=== PATIENT | male | born 1945 | race Caucasian/White ===

== ENCOUNTER 2024-04-30 11:21 | Inpatient (IN) | payer MEDICARE, OTHER ==
[~2024-04-30] VITALS: Ht 165.1 cm; Wt 78.9 kg
[2024-04-30] MEDS: IV NS 0.9% 1,000 ML BAG IV ONE ×2 (11:58→13:30)
[2024-04-30 12:03] LABS: HEMATOCRIT 41 % (39-51); RED BLOOD CELL COUNT(AUTO) 4.07 MIL/uL (4.5-6.0)
[2024-04-30 12:24] LABS: CALCIUM, SERUM 10.6 mg/dL (8.5-10.1); CARBON DIOXIDE 22 mmol/L (21-32); CHLORIDE 112 mmol/L (98-107); CREATININE 2.1 mg/dL (0.6-1.3); GLUCOSE 170 mg/dL (74-106); SODIUM SERUM 148 mmol/L (136-145); UREA NITROGEN, BLOOD 60 mg/dL (7-18)
[2024-04-30 12:28] LABS: BASOPHILS # (AUTO) 0.1 K/uL (0.0-0.2); BASOPHILS % (AUTO) 0.4 % (0.0-2.0); EOSINOPHILS % (AUTO) 0.1 % (0.0-6.0); HEMOGLOBIN 13.3 g/dL (13.5-17.5); LYMPHOCYTES # (AUTO) 2.9 K/uL (0.8-4.8); LYMPHOCYTES % (AUTO) 20.8 % (20.0-44.0); MEAN CORPUSCULAR HEMOGLOBIN 33 PG (26.0-33.0); MEAN CORPUSCULAR HGB CONC 32 g/dl (31.0-36.0); MEAN CORPUSCULAR VOLUME 101 fL (80-96); NEUTROPHILS % (AUTO) 71.7 % (43.0-81.0); PLATELET COUNT (AUTO) 57 K/uL (150-450); RED CELL DISTRIBUTION WIDTH 22.4 % (11.5-15.0); WHITE BLOOD COUNT (AUTO) 13.9 K/uL (4.3-11.0)
[2024-04-30 12:30] LABS: ALANINE AMINOTRANSFERASE 68 U/L (12-78); ALBUMIN 2.9 g/dL (3.4-5.0); ALKALINE PHOSPHATASE 381 U/L (46-116); ASPARTATE AMINOTRANSFERASE 175 U/L (15-37); BILIRUBIN,DIRECT 2.3 mg/dL (0.0-0.2); BILIRUBIN,TOTAL 3.7 mg/dL (0.2-1.0); TOTAL PROTEIN, SERUM 6.6 g/dL (6.4-8.2)
[2024-04-30 12:34] LABS: LACTIC ACID 3.9 mmol/L (0.4-2.0)
[2024-04-30 13:14] LABS: PHOSPHORUS 4.1 mg/dL (2.5-4.9)
[2024-04-30 13:21] LABS: LYMPHOCYTES % (MANUAL) 13 % (16-48); MONOCYTES % (MANUAL) 4 % (0-11.0); NEUTROPHILS % (MANUAL) 83 (42-76); PLATELET ESTIMATE DECREASED
[2024-04-30 13:22] LABS: ANISOCYTOSIS 1+
[2024-04-30 13:25] LABS: MAGNESIUM 2.8 mg/dL (1.8-2.4); THYROID STIMULATING HORMONE 5.93 uIU/mL (0.358-3.74)
[2024-04-30] MEDS ORDERED: hydrALAZINE HCL IV 20 MG VIAL IV PRN (13:30)
[2024-04-30] MEDS ORDERED: ONDANSETRON HCL/PF 4 MG/2 ML VIAL IVP PRN (13:30)
[2024-04-30] MEDS: VANCOMYCIN 1 GM in IV D5W 250 ML IV ONE (13:30)
[2024-04-30] MEDS ORDERED: DEXTROSE 50%-WATER 50 ML DISP.SYRIN IV PRN (13:30)
[2024-04-30] MEDS: BLOOD SUGAR DIAGNOSTIC 1 EACH STRIP IN SCH (13:30)
[2024-04-30] MEDS: CEFEPIME 1 GM in IV D5W 50 ML IV ONE (13:45)
[2024-04-30] MEDS: IV D5/0.45 NACL 1,000 ML IV SCH (17:47)
[2024-04-30] MEDS: DOCUSATE SODIUM LIQ 100 MG/10 ML UDC PO SCH (17:53)
[2024-04-30 18:00] VITALS: BP 154/78; TEMP 98.1; O2SAT 99
[2024-04-30 20:00] VITALS: BP 141/64; TEMP 98.1; O2SAT 98
[2024-04-30] MEDS ORDERED: ALBU18HF2 IH (20:09)
[2024-04-30] MEDS ORDERED: PREG-59 PO (20:09)
[2024-04-30] MEDS ORDERED: ALPR0.255 PO (20:09)
[2024-04-30] MEDS ORDERED: EMPA25TA PO (20:09)
[2024-04-30] MEDS: HEPARIN SODIUM, PORCINE 5000 UNITS/1 ML VIAL SQ SCH (21:00)
[2024-04-30] MEDS: INSULIN REGULAR, HUMAN 100 UNIT/ML 3 ML VIAL SQ PRN (22:09)
[2024-05-01] MEDS: CEFEPIME 1 GM in IV D5W 50 ML IV SCH (01:52)
[2024-05-01 08:00] VITALS: BP 146/67; TEMP 97.9; O2SAT 96
[2024-05-01 08:10] LABS: BASOPHILS # (AUTO) 0.1 K/uL (0.0-0.2); BASOPHILS % (AUTO) 0.5 % (0.0-2.0); EOSINOPHILS % (AUTO) 0.2 % (0.0-6.0); HEMATOCRIT 35 % (39-51); HEMOGLOBIN 11.2 g/dL (13.5-17.5); LYMPHOCYTES # (AUTO) 4.9 K/uL (0.8-4.8); LYMPHOCYTES % (AUTO) 29.8 % (20.0-44.0); MEAN CORPUSCULAR HEMOGLOBIN 33 PG (26.0-33.0); MEAN CORPUSCULAR HGB CONC 32 g/dl (31.0-36.0); MEAN CORPUSCULAR VOLUME 102 fL (80-96); MONOCYTES # (AUTO) 1.8 K/uL (0.1-1.30); MONOCYTES % (AUTO) 11.2 % (2.0-12.0); NEUTROPHILS # (AUTO) 9.5 K/uL (1.8-8.9); NEUTROPHILS % (AUTO) 58.3 % (43.0-81.0); RED BLOOD CELL COUNT(AUTO) 3.41 MIL/uL (4.5-6.0); RED CELL DISTRIBUTION WIDTH 22.5 % (11.5-15.0); WHITE BLOOD COUNT (AUTO) 16.3 K/uL (4.3-11.0)
[2024-05-01 08:19] LABS: PLATELET COUNT (AUTO) 46 K/uL (150-450)
[2024-05-01] MEDS: POLYETHYLENE GLYCOL 3350 17 GM POWD.PACK PO SCH (09:00)
[2024-05-01 09:19] LABS: ALBUMIN 2.3 g/dL (3.4-5.0); BILIRUBIN,TOTAL 2.6 mg/dL (0.2-1.0); CALCIUM, SERUM 9.5 mg/dL (8.5-10.1); CREATININE 1.9 mg/dL (0.6-1.3); MAGNESIUM 2.5 mg/dL (1.8-2.4); PHOSPHORUS 2.2 mg/dL (2.5-4.9); TOTAL PROTEIN, SERUM 5.5 g/dL (6.4-8.2)
[2024-05-01 10:49] LABS: LYMPHOCYTES % (MANUAL) 22 % (16-48); MONOCYTES % (MANUAL) 14 % (0-11.0); NEUTROPHILS % (MANUAL) 64 (42-76); PLATELET ESTIMATE ADEQUATE
[2024-05-01 10:50] LABS: ANISOCYTOSIS 1+
[2024-05-01] MEDS: MORPHINE SULFATE INJ 2 MG/ML DISP.SYRIN IV PRN (13:33)
[2024-05-01 16:00] VITALS: BP 132/73; TEMP 98.2; O2SAT 96
[2024-05-01] MEDS: Sodium Phosphate 15 MMOL in IV NS 0.9% 245 ML IV ONE (17:03)
[2024-05-01 20:00] VITALS: BP 136/79; TEMP 97.8; O2SAT 95
[2024-05-02 01:37] LABS: APPEARANCE,URINE TURBID (CLEAR); BILIRUBIN,URINE NEGATIVE (NEGATIVE); BLOOD, URINE 1+ Ery/uL (NEGATIVE); COLOR,URINE YELLOW (YELLOW); KETONES,URINE NEGATIVE (NEGATIVE); LEUKOCYTE ESTERASE ,URINE NEGATIVE (NEGATIVE); NITRITE, URINE POSITIVE (NEGATIVE); PH,URINE 5.5 (5.0-8.0); PROTEIN,URINE 1+ mg/dl (NEGATIVE); UGLUCOSE TRACE mg/dL (NEGATIVE)
[2024-05-02 01:54] LABS: CREATININE, URINE 134.1 MG/DL (30.0-125.0); URINE TOTAL PROTEIN 95.1 mg/dL (0-11.9)
[2024-05-02 01:56] LABS: ADD URINE CULTURE YES; BACTERIA,URINE Rare /HPF (None Seen); RBC,URINE 0-2 /HPF (0-2); SQUAMOUS EPITHELIAL CELL,UR None Seen /HPF (None Seen); WBC,URINE NONE SEEN /HPF (0-3)
[2024-05-02 01:58] LABS: URINE AMORPHOUS URATE Many /HPF (None Seen)
[2024-05-02 02:53] LABS: EOSINOPHIL,URINE None Seen
[2024-05-02 07:52] LABS: BASOPHILS # (AUTO) 0.1 K/uL (0.0-0.2); BASOPHILS % (AUTO) 0.8 % (0.0-2.0); EOSINOPHILS # (AUTO) 0.2 K/uL (0.0-0.7); EOSINOPHILS % (AUTO) 1.3 % (0.0-6.0); HEMATOCRIT 39 % (39-51); HEMOGLOBIN 12.5 g/dL (13.5-17.5); LYMPHOCYTES # (AUTO) 4.6 K/uL (0.8-4.8); LYMPHOCYTES % (AUTO) 32.8 % (20.0-44.0); MEAN CORPUSCULAR HEMOGLOBIN 33 PG (26.0-33.0); MEAN CORPUSCULAR HGB CONC 32 g/dl (31.0-36.0); MEAN CORPUSCULAR VOLUME 103 fL (80-96); MONOCYTES % (AUTO) 7.1 % (2.0-12.0); NEUTROPHILS # (AUTO) 8.1 K/uL (1.8-8.9); RED CELL DISTRIBUTION WIDTH 23.1 % (11.5-15.0)
[2024-05-02 08:00] VITALS: BP 148/78; TEMP 97.7; O2SAT 97
[2024-05-02 08:00] LABS: ALBUMIN 2.4 g/dL (3.4-5.0); BILIRUBIN,TOTAL 2.8 mg/dL (0.2-1.0); CALCIUM, SERUM 9.5 mg/dL (8.5-10.1); CREATININE 1.5 mg/dL (0.6-1.3); MAGNESIUM 2.4 mg/dL (1.8-2.4); PHOSPHORUS 2.5 mg/dL (2.5-4.9); POTASSIUM 3.8 mmol/L (3.5-5.1); TOTAL PROTEIN, SERUM 5.9 g/dL (6.4-8.2)
[2024-05-02 08:07] LABS: PLATELET COUNT (AUTO) 40 K/uL (150-450)
[2024-05-02 09:52] LABS: PLATELET ESTIMATE DECREASED
[2024-05-02 09:57] LABS: LYMPHOCYTES % (MANUAL) 26 % (16-48); MONOCYTES % (MANUAL) 5 % (0-11.0); NEUTROPHILS % (MANUAL) 69 (42-76)
[2024-05-02 09:58] LABS: ANISOCYTOSIS 1+
[2024-05-02] MEDS ORDERED: ALBUTEROL FS 2.5 MG/3 ML VIAL.NEB NEB PRN (13:30)
[2024-05-02 16:00] VITALS: BP 159/83; TEMP 97.8; O2SAT 97
[2024-05-02 23:11] VITALS: BP 152/75; TEMP 98.1; O2SAT 100
[2024-05-03 11:19] LABS: BASOPHILS # (AUTO) 0.1 K/uL (0.0-0.2); BASOPHILS % (AUTO) 0.7 % (0.0-2.0); EOSINOPHILS # (AUTO) 0.3 K/uL (0.0-0.7); EOSINOPHILS % (AUTO) 2.2 % (0.0-6.0); HEMATOCRIT 37 % (39-51); HEMOGLOBIN 12.1 g/dL (13.5-17.5); LYMPHOCYTES # (AUTO) 3.7 K/uL (0.8-4.8); LYMPHOCYTES % (AUTO) 31.4 % (20.0-44.0); MEAN CORPUSCULAR HEMOGLOBIN 34 PG (26.0-33.0); MEAN CORPUSCULAR HGB CONC 33 g/dl (31.0-36.0); MEAN CORPUSCULAR VOLUME 104 fL (80-96); MONOCYTES # (AUTO) 1.2 K/uL (0.1-1.30); MONOCYTES % (AUTO) 10.5 % (2.0-12.0); NEUTROPHILS # (AUTO) 6.5 K/uL (1.8-8.9); NEUTROPHILS % (AUTO) 55.2 % (43.0-81.0); RED BLOOD CELL COUNT(AUTO) 3.58 MIL/uL (4.5-6.0); RED CELL DISTRIBUTION WIDTH 22.7 % (11.5-15.0); WHITE BLOOD COUNT (AUTO) 11.8 K/uL (4.3-11.0)
[2024-05-03 11:22] LABS: ALBUMIN 2.3 g/dL (3.4-5.0); BILIRUBIN,TOTAL 3.4 mg/dL (0.2-1.0); CALCIUM, SERUM 9.4 mg/dL (8.5-10.1); CREATININE 1.2 mg/dL (0.6-1.3); POTASSIUM 3.8 mmol/L (3.5-5.1); TOTAL PROTEIN, SERUM 5.6 g/dL (6.4-8.2)
[2024-05-03 13:16] LABS: PLATELET COUNT (AUTO) 26 K/uL (150-450)
[2024-05-03 15:50] LABS: LYMPHOCYTES % (MANUAL) 16 % (16-48); MONOCYTES % (MANUAL) 3 % (0-11.0); NEUTROPHILS % (MANUAL) 81 (42-76)
[2024-05-03 15:51] LABS: ANISOCYTOSIS 1+; PLATELET ESTIMATE DECREASED
[2024-05-03 20:00] VITALS: BP 156/74; TEMP 97.9; O2SAT 95
[2024-05-04 02:11] VITALS: BP 139/70
[2024-05-04 07:09] LABS: INR 1.14 (0.91-1.10)
[2024-05-04 07:09] LABS: PTH, INTACT 9 pg/mL (15-65)
[2024-05-04 07:11] LABS: RHEUMATOID FACTOR SCREEN NEGATIVE (NEGATIVE)
[2024-05-04 07:12] LABS: D-DIMER 6.2 mg/L(FEU (0.17-0.50)
[2024-05-04 07:19] LABS: BASOPHILS # (AUTO) 0.1 K/uL (0.0-0.2); BASOPHILS % (AUTO) 0.9 % (0.0-2.0); EOSINOPHILS # (AUTO) 0.3 K/uL (0.0-0.7); EOSINOPHILS % (AUTO) 2.4 % (0.0-6.0); HEMATOCRIT 37 % (39-51); HEMOGLOBIN 11.9 g/dL (13.5-17.5); LYMPHOCYTES # (AUTO) 3.6 K/uL (0.8-4.8); LYMPHOCYTES % (AUTO) 29.6 % (20.0-44.0); MEAN CORPUSCULAR HEMOGLOBIN 34 PG (26.0-33.0); MEAN CORPUSCULAR HGB CONC 32 g/dl (31.0-36.0); MEAN CORPUSCULAR VOLUME 103 fL (80-96); MONOCYTES # (AUTO) 1.1 K/uL (0.1-1.30); MONOCYTES % (AUTO) 8.9 % (2.0-12.0); NEUTROPHILS # (AUTO) 7.1 K/uL (1.8-8.9); NEUTROPHILS % (AUTO) 58.2 % (43.0-81.0); RED BLOOD CELL COUNT(AUTO) 3.55 MIL/uL (4.5-6.0); RED CELL DISTRIBUTION WIDTH 22.4 % (11.5-15.0); WHITE BLOOD COUNT (AUTO) 12.1 K/uL (4.3-11.0)
[2024-05-04 07:24] LABS: ALBUMIN 2.2 g/dL (3.4-5.0); BILIRUBIN,TOTAL 3.6 mg/dL (0.2-1.0); CALCIUM, SERUM 9.2 mg/dL (8.5-10.1); CREATININE 1.3 mg/dL (0.6-1.3); POTASSIUM 3.5 mmol/L (3.5-5.1); TOTAL PROTEIN, SERUM 5.4 g/dL (6.4-8.2)
[2024-05-04 07:28] LABS: PLATELET COUNT (AUTO) 30 K/uL (150-450)
[2024-05-04 07:43] LABS: C-REACTIVE PROTEIN 2.61 mg/dL (0.0-0.30); FREE PSA 1.11 ng/mL (0.00-45); PROSTATE SPECIFIC ANTIGEN SCR 8.99 ng/mL (0.00-4.00)
[2024-05-04 08:00] VITALS: BP 159/87; TEMP 98.2; O2SAT 98
[2024-05-04 09:36] LABS: ANISOCYTOSIS 1+; LYMPHOCYTES % (MANUAL) 19 % (16-48); MONOCYTES % (MANUAL) 8 % (0-11.0); NEUTROPHILS % (MANUAL) 73 (42-76); OVALOCYTES 1+; PLATELET ESTIMATE DECREASED
[2024-05-04] MEDS: NEOMY SULF/BACITRAC ZN/POLY 15 GM TUBE TP SCH (12:36)
[2024-05-04] MEDS: IV 1/2NS 1000 ML 1,000 ML IV SCH (12:47)
[2024-05-04] MEDS ORDERED: diphenhydrAMINE HCL 50 MG/ML VIAL IV ONE (14:00)
[2024-05-04] MEDS ORDERED: ACETAMINOPHEN 325 MG TABLET PO ONE (14:00)
[2024-05-04 16:00] VITALS: BP 145/69; TEMP 98.1; O2SAT 97
[2024-05-04] MEDS ORDERED: IV NS 0.9% 250 ML IV ONE (16:17)
[2024-05-04] MEDS ORDERED: IOHEXOL-300 100 ML VIAL IV ONE (16:17)
[2024-05-04] MEDS: AMMONIUM LACTATE 227 GM BOTTLE TP SCH (18:02)
[2024-05-04 20:14] VITALS: BP 158/75; TEMP 98.1; O2SAT 100
[2024-05-05] VITALS (15 sets, daily range): BP systolic 97–160; BP diastolic 67–85; TEMP 97.5–98.1; O2SAT 97–100
[2024-05-05 04:07] LABS: HEPATITIS B SURFACE AB Non Reactive (.)
[2024-05-05] MEDS: ACETAMINOPHEN 325 MG TABLET PO PRN (05:53)
[2024-05-05] MEDS: diphenhydrAMINE HCL 50 MG/ML VIAL IV PRN (05:53)
[2024-05-05 06:07] LABS: AFP, TUMOR MARKER <1.8 ng/mL (0.0-8.4)
[2024-05-05 07:47] LABS: CALCIUM, SERUM 9.2 mg/dL (8.5-10.1); CREATININE 1.3 mg/dL (0.6-1.3); POTASSIUM 3.6 mmol/L (3.5-5.1)
[2024-05-05 07:54] LABS: ALBUMIN 2.2 g/dL (3.4-5.0); BILIRUBIN,TOTAL 3.5 mg/dL (0.2-1.0); TOTAL PROTEIN, SERUM 5.3 g/dL (6.4-8.2)
[2024-05-05 08:10] LABS: FREE KAPPA LT CHAINS SERUM 97.8 mg/L (3.3-19.4); FREE LAMBDA LT CHAIN SERUM 40.3 mg/L (5.7-26.3); KAPPA/LAMBDA RATIO SERUM 2.43 (0.26-1.65)
[2024-05-05 08:27] LABS: INR 1.1 (0.91-1.10); PARTIAL THROMBOPLASTIN TIME 25.5 SEC (24.3-34.3); PROTHROMBIN TIME 11.6 SECS (9.2-11.1)
[2024-05-05 08:31] LABS: D-DIMER 6.12 mg/L(FEU (0.17-0.50)
[2024-05-05 08:57] LABS: BASOPHILS # (AUTO) 0.2 K/uL (0.0-0.2); BASOPHILS % (AUTO) 1.6 % (0.0-2.0); EOSINOPHILS # (AUTO) 0.2 K/uL (0.0-0.7); EOSINOPHILS % (AUTO) 1.3 % (0.0-6.0); HEMATOCRIT 36 % (39-51); HEMOGLOBIN 11.8 g/dL (13.5-17.5); LYMPHOCYTES # (AUTO) 3.7 K/uL (0.8-4.8); LYMPHOCYTES % (AUTO) 24.5 % (20.0-44.0); MEAN CORPUSCULAR HEMOGLOBIN 34 PG (26.0-33.0); MEAN CORPUSCULAR HGB CONC 33 g/dl (31.0-36.0); MEAN CORPUSCULAR VOLUME 103 fL (80-96); MONOCYTES # (AUTO) 1.1 K/uL (0.1-1.30); MONOCYTES % (AUTO) 7.1 % (2.0-12.0); NEUTROPHILS # (AUTO) 9.9 K/uL (1.8-8.9); NEUTROPHILS % (AUTO) 65.5 % (43.0-81.0); RED CELL DISTRIBUTION WIDTH 22.6 % (11.5-15.0)
[2024-05-05 09:07] LABS: PLATELET COUNT (AUTO) 31 K/uL (150-450)
[2024-05-05 09:08] LABS: FOLIC ACID 4.5 ng/mL (>3.0)
[2024-05-05 09:08] LABS: *SPE A/G RATIO 0.9 (0.7-1.7); *SPE ALBUMIN 2.6 g/dL (2.9-4.4); *SPE ALPHA-1-GLOBULIN 0.3 g/dL (0.0-0.4); *SPE ALPHA-2-GLOBULIN 0.4 g/dL (0.4-1.0); *SPE GLOBULIN, TOTAL 2.9 g/dL (2.2-3.9); *SPE M-SPIKE Not Observed g/dL (Not Observed); *SPE PROTEIN TOTAL 5.5 g/dL (6.0-8.5); *SPEGAMMA GLOBULIN 1.2 g/dL (0.4-1.8)
[2024-05-05] MEDS: diphenhydrAMINE HCL 50 MG/ML VIAL IV ONE ×2 (12:27→23:48)
[2024-05-05] MEDS ORDERED: diphenhydrAMINE HCL 50 MG/ML VIAL IV ONE (14:00)
[2024-05-05 16:46] LABS: NEUTROPHILS % (MANUAL) 73 (42-76)
[2024-05-05 16:47] LABS: EOSINOPHILS % (MANUAL) 1 % (0-4); LYMPHOCYTES % (MANUAL) 12 % (16-48); MONOCYTES % (MANUAL) 14 % (0-11.0); PLATELET ESTIMATE DECREASED
[2024-05-05 16:50] LABS: ANISOCYTOSIS 1+
[2024-05-05 18:28] LABS: PROTEIN, BODY FLUID 2.7 G/DL
[2024-05-05 21:24] LABS: APPEARANCE,SPUN,BODY FLUID CLEAR (CLEAR); TOTAL VOLUME,BODY FLUID 1300 mL; WBC, BODY FLUID 2051 /cu. mm. (0-200)
[2024-05-05 21:25] LABS: MONOCYTES,BODY FLUID 2 %; POLYNUCLEAR, BODY FLUID 5 % (0-25)
[2024-05-05] MEDS: ACETAMINOPHEN 325 MG TABLET PO ONE (23:16)
[2024-05-06 00:11] VITALS: BP 132/72; TEMP 98.1
[2024-05-06 00:26] VITALS: BP 144/65; TEMP 98.2
[2024-05-06 00:56] VITALS: BP 131/67; TEMP 98.1
[2024-05-06 06:57] LABS: BASOPHILS # (AUTO) 0.3 K/uL (0.0-0.2); BASOPHILS % (AUTO) 1.5 % (0.0-2.0); EOSINOPHILS # (AUTO) 0.2 K/uL (0.0-0.7); EOSINOPHILS % (AUTO) 0.9 % (0.0-6.0); HEMATOCRIT 36 % (39-51); HEMOGLOBIN 11.5 g/dL (13.5-17.5); LYMPHOCYTES # (AUTO) 4.2 K/uL (0.8-4.8); LYMPHOCYTES % (AUTO) 22.9 % (20.0-44.0); MEAN CORPUSCULAR HEMOGLOBIN 34 PG (26.0-33.0); MEAN CORPUSCULAR HGB CONC 32 g/dl (31.0-36.0); MEAN CORPUSCULAR VOLUME 105 fL (80-96); MONOCYTES # (AUTO) 1.3 K/uL (0.1-1.30); MONOCYTES % (AUTO) 6.8 % (2.0-12.0); NEUTROPHILS # (AUTO) 12.4 K/uL (1.8-8.9); NEUTROPHILS % (AUTO) 67.9 % (43.0-81.0); PLATELET COUNT (AUTO) 53 K/uL (150-450); RED BLOOD CELL COUNT(AUTO) 3.41 MIL/uL (4.5-6.0); RED CELL DISTRIBUTION WIDTH 23.5 % (11.5-15.0); WHITE BLOOD COUNT (AUTO) 18.3 K/uL (4.3-11.0)
[2024-05-06 07:17] LABS: INR 1.04 (0.91-1.10); PARTIAL THROMBOPLASTIN TIME 26.3 SEC (24.3-34.3)
[2024-05-06 07:45] LABS: D-DIMER 6.59 mg/L(FEU (0.17-0.50)
[2024-05-06 07:47] LABS: ALBUMIN 2.2 g/dL (3.4-5.0); BILIRUBIN,TOTAL 3.5 mg/dL (0.2-1.0); CALCIUM, SERUM 9.5 mg/dL (8.5-10.1); CREATININE 1.2 mg/dL (0.6-1.3); POTASSIUM 3.7 mmol/L (3.5-5.1); TOTAL PROTEIN, SERUM 5.7 g/dL (6.4-8.2)
[2024-05-06 14:07] LABS: *ANA ANTI-CENTROMERE B AB <0.2 AI (0.0-0.9); *ANA ANTI-DNA(DS) AB, QN 4 IU/mL (0-9); *ANA ANTI-JO-1 <0.2 AI (0.0-0.9); *ANA ANTICHROMATIN ANTIBODY >8.0 AI (0.0-0.9); *ANA RNP ANTIBODIES 0.3 AI (0.0-0.9); *ANA SJOGREN'S ANTI-SS-A <0.2 AI (0.0-0.9); *ANA SJOGREN'S ANTI-SS-B <0.2 AI (0.0-0.9); *ANAANTI-SCLERODERMA-70 AB <0.2 AI (0.0-0.9); *ANASMITH AB <0.2 AI (0.0-0.9)
[2024-05-06 14:09] LABS: EOSINOPHILS % (MANUAL) 1 % (0-4); LYMPHOCYTES % (MANUAL) 9 % (16-48); MONOCYTES % (MANUAL) 7 % (0-11.0); NEUTROPHILS % (MANUAL) 83 (42-76)
[2024-05-06 14:10] LABS: ANISOCYTOSIS 1+; PLATELET ESTIMATE DECREASED
[2024-05-06 14:48] LABS: HIV-1 p24 ANTIGEN NON REACTIVE (NONREACTIVE); HIV-1/2 ANTIBODY NON REACTIVE (NONREACTIVE)
[2024-05-06] MEDS: ALBUTEROL FS 2.5 MG/3 ML VIAL.NEB NEB PRN (16:30)
[2024-05-06 16:31] VITALS: O2SAT 96
[2024-05-06 16:41] VITALS: O2SAT 100
[2024-05-06 20:00] VITALS: BP 130/75; TEMP 97.5; O2SAT 99
[2024-05-07 07:47] LABS: INR 1.08 (0.91-1.10); PARTIAL THROMBOPLASTIN TIME 26.9 SEC (24.3-34.3); PROTHROMBIN TIME 11.4 SECS (9.2-11.1)
[2024-05-07 07:49] LABS: ALBUMIN 2.1 g/dL (3.4-5.0); CALCIUM, SERUM 9.3 mg/dL (8.5-10.1); CREATININE 1.5 mg/dL (0.6-1.3); POTASSIUM 3.8 mmol/L (3.5-5.1); TOTAL PROTEIN, SERUM 5.4 g/dL (6.4-8.2)
[2024-05-07 08:00] VITALS: BP 135/67; TEMP 98.1; O2SAT 99
[2024-05-07 08:01] LABS: D-DIMER 5.5 mg/L(FEU (0.17-0.50)
[2024-05-07 08:58] LABS: BASOPHILS # (AUTO) 0.1 K/uL (0.0-0.2); BASOPHILS % (AUTO) 0.4 % (0.0-2.0); EOSINOPHILS # (AUTO) 0.2 K/uL (0.0-0.7); EOSINOPHILS % (AUTO) 0.9 % (0.0-6.0); HEMATOCRIT 36 % (39-51); HEMOGLOBIN 11.7 g/dL (13.5-17.5); LYMPHOCYTES # (AUTO) 4.7 K/uL (0.8-4.8); LYMPHOCYTES % (AUTO) 23.2 % (20.0-44.0); MEAN CORPUSCULAR HEMOGLOBIN 34 PG (26.0-33.0); MEAN CORPUSCULAR HGB CONC 32 g/dl (31.0-36.0); MEAN CORPUSCULAR VOLUME 104 fL (80-96); MONOCYTES % (AUTO) 9.8 % (2.0-12.0); NEUTROPHILS # (AUTO) 13.3 K/uL (1.8-8.9); NEUTROPHILS % (AUTO) 65.7 % (43.0-81.0); RED BLOOD CELL COUNT(AUTO) 3.45 MIL/uL (4.5-6.0); RED CELL DISTRIBUTION WIDTH 23.4 % (11.5-15.0); WHITE BLOOD COUNT (AUTO) 20.2 K/uL (4.3-11.0)
[2024-05-07 09:10] LABS: PLATELET COUNT (AUTO) 43 K/uL (150-450)
[2024-05-07] MEDS: DOXYCYCLINE HYCLATE (100 MG) 100 MG TABLET PO SCH (12:34)
[2024-05-07] MEDS: CEFTRIAXONE 2 G in IV D5W 100 ML IV SCH (12:36)
[2024-05-07 15:25] LABS: ANISOCYTOSIS 1+; LYMPHOCYTES % (MANUAL) 9 % (16-48); MONOCYTES % (MANUAL) 6 % (0-11.0); NEUTROPHILS % (MANUAL) 85 (42-76); PLATELET ESTIMATE DECREASED
[2024-05-07 20:00] VITALS: BP 128/48; TEMP 97.9; O2SAT 97
[2024-05-07 22:56] VITALS: BP 128/60; TEMP 97.9; O2SAT 97
[2024-05-08 06:35] LABS: BASOPHILS # (AUTO) 0.1 K/uL (0.0-0.2); BASOPHILS % (AUTO) 0.8 % (0.0-2.0); EOSINOPHILS # (AUTO) 0.2 K/uL (0.0-0.7); HEMATOCRIT 37 % (39-51); HEMOGLOBIN 11.7 g/dL (13.5-17.5); LYMPHOCYTES % (AUTO) 23.6 % (20.0-44.0); MEAN CORPUSCULAR HEMOGLOBIN 34 PG (26.0-33.0); MEAN CORPUSCULAR HGB CONC 32 g/dl (31.0-36.0); MEAN CORPUSCULAR VOLUME 105 fL (80-96); MONOCYTES # (AUTO) 1.7 K/uL (0.1-1.30); MONOCYTES % (AUTO) 10.1 % (2.0-12.0); NEUTROPHILS # (AUTO) 10.8 K/uL (1.8-8.9); NEUTROPHILS % (AUTO) 64.5 % (43.0-81.0); PLATELET COUNT (AUTO) 51 K/uL (150-450); RED BLOOD CELL COUNT(AUTO) 3.48 MIL/uL (4.5-6.0); RED CELL DISTRIBUTION WIDTH 23.1 % (11.5-15.0); WHITE BLOOD COUNT (AUTO) 16.8 K/uL (4.3-11.0)
[2024-05-08 06:46] LABS: ALBUMIN 2.2 g/dL (3.4-5.0); BILIRUBIN,TOTAL 2.4 mg/dL (0.2-1.0); CALCIUM, SERUM 9.5 mg/dL (8.5-10.1); CREATININE 1.5 mg/dL (0.6-1.3); POTASSIUM 3.7 mmol/L (3.5-5.1); TOTAL PROTEIN, SERUM 5.5 g/dL (6.4-8.2)
[2024-05-08] MEDS: IV D5/0.45 NACL 1,000 ML IV PRN (06:46)
[2024-05-08 06:52] LABS: INR 1.09 (0.91-1.10); PARTIAL THROMBOPLASTIN TIME 26.3 SEC (24.3-34.3); PROTHROMBIN TIME 11.5 SECS (9.2-11.1)
[2024-05-08 07:00] VITALS: BP 148/72; TEMP 97.9; O2SAT 100
[2024-05-08 07:14] LABS: D-DIMER 5.2 mg/L(FEU (0.17-0.50)
[2024-05-08 08:04] LABS: LYMPHOCYTES % (MANUAL) 18 % (16-48); MONOCYTES % (MANUAL) 3 % (0-11.0); NEUTROPHILS % (MANUAL) 79 (42-76); PLATELET ESTIMATE DECREASED
[2024-05-08 08:05] LABS: ANISOCYTOSIS 1+
[2024-05-08 12:43] VITALS: O2SAT 95
[2024-05-08 12:58] VITALS: O2SAT 99
[2024-05-08 16:00] VITALS: BP 128/65; TEMP 98.1; O2SAT 100
[2024-05-08 20:00] VITALS: BP 120/61; TEMP 98.4; O2SAT 99
[2024-05-08 22:39] VITALS: BP 120/61; TEMP 98.4; O2SAT 99
[2024-05-09] VITALS (7 sets, daily range): BP systolic 139; BP diastolic 64; TEMP 98.1; O2SAT 97–99
[2024-05-09 05:50] LABS: BASOPHILS # (AUTO) 0.2 K/uL (0.0-0.2); EOSINOPHILS # (AUTO) 0.2 K/uL (0.0-0.7); EOSINOPHILS % (AUTO) 1.5 % (0.0-6.0); HEMATOCRIT 31 % (39-51); HEMOGLOBIN 10.1 g/dL (13.5-17.5); LYMPHOCYTES # (AUTO) 4.6 K/uL (0.8-4.8); LYMPHOCYTES % (AUTO) 28.3 % (20.0-44.0); MEAN CORPUSCULAR HEMOGLOBIN 34 PG (26.0-33.0); MEAN CORPUSCULAR HGB CONC 33 g/dl (31.0-36.0); MEAN CORPUSCULAR VOLUME 106 fL (80-96); MONOCYTES % (AUTO) 12.3 % (2.0-12.0); NEUTROPHILS # (AUTO) 9.4 K/uL (1.8-8.9); NEUTROPHILS % (AUTO) 56.9 % (43.0-81.0); PLATELET COUNT (AUTO) 54 K/uL (150-450); RED BLOOD CELL COUNT(AUTO) 2.93 MIL/uL (4.5-6.0); RED CELL DISTRIBUTION WIDTH 23.5 % (11.5-15.0); WHITE BLOOD COUNT (AUTO) 16.4 K/uL (4.3-11.0)
[2024-05-09 06:16] LABS: ALANINE AMINOTRANSFERASE 27 U/L (12-78); ALBUMIN 1.8 g/dL (3.4-5.0); ALKALINE PHOSPHATASE 324 U/L (46-116); ASPARTATE AMINOTRANSFERASE 58 U/L (15-37); BILIRUBIN,TOTAL 1.6 mg/dL (0.2-1.0); CARBON DIOXIDE 22 mmol/L (21-32); CHLORIDE 110 mmol/L (98-107); CREATININE 1.5 mg/dL (0.6-1.3); GLUCOSE 138 mg/dL (74-106); POTASSIUM 3.5 mmol/L (3.5-5.1); SODIUM SERUM 140 mmol/L (136-145); TOTAL PROTEIN, SERUM 4.8 g/dL (6.4-8.2); UREA NITROGEN, BLOOD 24 mg/dL (7-18)
[2024-05-09 06:20] LABS: D-DIMER 6.47 mg/L(FEU (0.17-0.50); INR 1.08 (0.91-1.10); PARTIAL THROMBOPLASTIN TIME 26.4 SEC (24.3-34.3); PROTHROMBIN TIME 11.4 SECS (9.2-11.1)
[2024-05-09 07:40] LABS: EOSINOPHILS % (MANUAL) 2 % (0-4); LYMPHOCYTES % (MANUAL) 30 % (16-48); MONOCYTES % (MANUAL) 3 % (0-11.0); NEUTROPHILS % (MANUAL) 65 (42-76); PLATELET ESTIMATE DECREASED
[2024-05-09] MEDS ORDERED: LIDOCAINE 1% INJ 50 ML MDV IJ ONE (18:00)
[2024-05-09] MEDS ORDERED: diphenhydrAMINE HCL 50 MG/ML VIAL IV ONE (18:00)
[2024-05-09] MEDS ORDERED: ACETAMINOPHEN 325 MG TABLET PO ONE (18:00)
[2024-05-10] VITALS (16 sets, daily range): BP systolic 120–142; BP diastolic 58–72; TEMP 95.6–98.3; O2SAT 95–99
[2024-05-10] MEDS: diphenhydrAMINE HCL 50 MG/ML VIAL IV ONE ×2 (02:56→22:46)
[2024-05-10] MEDS: ACETAMINOPHEN 325 MG TABLET PO ONE ×2 (02:57→22:46)
[2024-05-10 07:07] LABS: CALCIUM, SERUM 9.1 mg/dL (8.5-10.1); CREATININE 1.5 mg/dL (0.6-1.3); POTASSIUM 3.6 mmol/L (3.5-5.1)
[2024-05-10 07:13] LABS: ALBUMIN 1.7 g/dL (3.4-5.0); BILIRUBIN,TOTAL 1.3 mg/dL (0.2-1.0); TOTAL PROTEIN, SERUM 4.8 g/dL (6.4-8.2)
[2024-05-10 07:18] LABS: INR 1.03 (0.91-1.10); PARTIAL THROMBOPLASTIN TIME 26.1 SEC (24.3-34.3); PROTHROMBIN TIME 10.9 SECS (9.2-11.1)
[2024-05-10 07:32] LABS: D-DIMER 7.27 mg/L(FEU (0.17-0.50)
[2024-05-10 07:50] LABS: BASOPHILS # (AUTO) 0.1 K/uL (0.0-0.2); BASOPHILS % (AUTO) 0.8 % (0.0-2.0); EOSINOPHILS # (AUTO) 0.2 K/uL (0.0-0.7); EOSINOPHILS % (AUTO) 1.6 % (0.0-6.0); HEMATOCRIT 29 % (39-51); HEMOGLOBIN 9.6 g/dL (13.5-17.5); LYMPHOCYTES # (AUTO) 3.2 K/uL (0.8-4.8); LYMPHOCYTES % (AUTO) 27.3 % (20.0-44.0); MEAN CORPUSCULAR HEMOGLOBIN 35 PG (26.0-33.0); MEAN CORPUSCULAR HGB CONC 33 g/dl (31.0-36.0); MEAN CORPUSCULAR VOLUME 106 fL (80-96); MONOCYTES # (AUTO) 1.5 K/uL (0.1-1.30); MONOCYTES % (AUTO) 12.4 % (2.0-12.0); NEUTROPHILS # (AUTO) 6.8 K/uL (1.8-8.9); NEUTROPHILS % (AUTO) 57.9 % (43.0-81.0); RED BLOOD CELL COUNT(AUTO) 2.76 MIL/uL (4.5-6.0); WHITE BLOOD COUNT (AUTO) 11.8 K/uL (4.3-11.0)
[2024-05-10 08:08] LABS: PLATELET COUNT (AUTO) 47 K/uL (150-450)
[2024-05-10 11:33] LABS: EOSINOPHILS % (MANUAL) 2 % (0-4); LYMPHOCYTES % (MANUAL) 21 % (16-48); MONOCYTES % (MANUAL) 11 % (0-11.0); NEUTROPHILS % (MANUAL) 66 (42-76)
[2024-05-10 11:34] LABS: PLATELET ESTIMATE DECREASED
[2024-05-10 11:35] LABS: ANISOCYTOSIS 1+
[2024-05-10] MEDS ORDERED: diphenhydrAMINE HCL 50 MG/ML VIAL IV ONE ×3 (14:30→18:30)
[2024-05-10] MEDS ORDERED: ACETAMINOPHEN 325 MG TABLET PO ONE ×3 (14:30→18:30)
[2024-05-11 07:39] VITALS: O2SAT 98
[2024-05-11 07:47] VITALS: O2SAT 98
[2024-05-11 08:00] VITALS: BP 153/72; TEMP 97.9; O2SAT 99
[2024-05-11] MEDS ORDERED: DOXY100T2 PO (10:02)
[2024-05-11 16:00] VITALS: BP 139/70; TEMP 97.5; O2SAT 99
[2024-05-11] MEDS: LORAZEPAM 1 MG TABLET PO ONE (16:42)
[2024-05-11] MEDS: LIDOCAINE 1% INJ 50 ML MDV IJ STA (17:29)
[2024-05-11 19:22] LABS: BASOPHILS # (AUTO) 0.1 K/uL (0.0-0.2); EOSINOPHILS # (AUTO) 0.2 K/uL (0.0-0.7); EOSINOPHILS % (AUTO) 1.6 % (0.0-6.0); HEMATOCRIT 33 % (39-51); HEMOGLOBIN 10.7 g/dL (13.5-17.5); LYMPHOCYTES # (AUTO) 2.9 K/uL (0.8-4.8); MEAN CORPUSCULAR HEMOGLOBIN 35 PG (26.0-33.0); MEAN CORPUSCULAR HGB CONC 32 g/dl (31.0-36.0); MEAN CORPUSCULAR VOLUME 108 fL (80-96); MONOCYTES # (AUTO) 1.7 K/uL (0.1-1.30); MONOCYTES % (AUTO) 15.7 % (2.0-12.0); NEUTROPHILS # (AUTO) 5.9 K/uL (1.8-8.9); NEUTROPHILS % (AUTO) 54.7 % (43.0-81.0); PLATELET COUNT (AUTO) 62 K/uL (150-450); RED CELL DISTRIBUTION WIDTH 23.4 % (11.5-15.0); WHITE BLOOD COUNT (AUTO) 10.8 K/uL (4.3-11.0)
[2024-05-11 19:38] LABS: CREATININE 1.5 mg/dL (0.6-1.3); POTASSIUM 4.2 mmol/L (3.5-5.1)
[2024-05-11 19:43] LABS: INR 1.04 (0.91-1.10); PARTIAL THROMBOPLASTIN TIME 26.4 SEC (24.3-34.3)
[2024-05-11 19:44] LABS: BILIRUBIN,TOTAL 1.4 mg/dL (0.2-1.0); TOTAL PROTEIN, SERUM 5.4 g/dL (6.4-8.2)
[2024-05-11 19:46] LABS: D-DIMER 8.26 mg/L(FEU (0.17-0.50)
[2024-05-11 20:00] VITALS: BP 150/74; TEMP 97.5; O2SAT 100
[2024-05-11 21:21] LABS: LYMPHOCYTES % (MANUAL) 23 % (16-48); MONOCYTES % (MANUAL) 12 % (0-11.0); NEUTROPHILS % (MANUAL) 65 (42-76)
[2024-05-11 21:22] LABS: PLATELET ESTIMATE DECREASED
[2024-05-11 21:24] LABS: ANISOCYTOSIS 1+; OVALOCYTES FEW
== END 2024-05-11 23:10 | DRG 823 ==
LOC: ER 11:25 → MED 13:28
PROVIDERS: ADMIT Internal Medicine; ATTEND Internal Medicine
PROC: 05H933Z Insertion of Infusion Device into Right Brachial Vein, Percutaneous Approach (ICD-10-PCS; 2024-05-01)
PROC: B54MZZA Ultrasonography of Right Upper Extremity Veins, Guidance (ICD-10-PCS; 2024-05-01)
PROC: 0W9B3ZZ Drainage of Left Pleural Cavity, Percutaneous Approach (ICD-10-PCS; 2024-05-05)
PROC: 30233M1 Transfusion of Nonautologous Plasma Cryoprecipitate into Peripheral Vein, Percutaneous Approach (ICD-10-PCS; 2024-05-05)
PROC: 07DH3ZX Extraction of Right Inguinal Lymphatic, Percutaneous Approach, Diagnostic (ICD-10-PCS; principal; 2024-05-06)
PROC: 30233R1 Transfusion of Nonautologous Platelets into Peripheral Vein, Percutaneous Approach (ICD-10-PCS; 2024-05-06)
PROC: 0Q923ZX Drainage of Right Pelvic Bone, Percutaneous Approach, Diagnostic (ICD-10-PCS; 2024-05-11)
DX: C83.16 Mantle cell lymphoma, intrapelvic lymph nodes (principal); G92.8 Other toxic encephalopathy; L89.123 Pressure ulcer of left upper back, stage 3; L89.113 Pressure ulcer of right upper back, stage 3; R53.2 Functional quadriplegia; C83.15 Mantle cell lymphoma, lymph nodes of inguinal region and lower limb; D68.59 Other primary thrombophilia; N17.9 Acute kidney failure, unspecified; E44.0 Moderate protein-calorie malnutrition; E87.0 Hyperosmolality and hypernatremia; E87.20 Acidosis, unspecified; J90 Pleural effusion, not elsewhere classified; J94.2 Hemothorax; C83.13 Mantle cell lymphoma, intra-abdominal lymph nodes; E86.0 Dehydration; R62.7 Adult failure to thrive; D69.6 Thrombocytopenia, unspecified; E83.52 Hypercalcemia; D50.9 Iron deficiency anemia, unspecified; D72.821 Monocytosis (symptomatic); E86.1 Hypovolemia; D53.9 Nutritional anemia, unspecified; F03.90 Unspecified dementia, unspecified severity, without behavioral disturbance, psychotic disturbance, mood disturbance, and anxiety; I10 Essential (primary) hypertension; D72.829 Elevated white blood cell count, unspecified; E80.6 Other disorders of bilirubin metabolism; R74.01 Elevation of levels of liver transaminase levels; E88.09 Other disorders of plasma-protein metabolism, not elsewhere classified; Z68.29 Body mass index [BMI] 29.0-29.9, adult; K76.82 Hepatic encephalopathy; K76.0 Fatty (change of) liver, not elsewhere classified; L97.519 Non-pressure chronic ulcer of other part of right foot with unspecified severity; L84 Corns and callosities; L85.3 Xerosis cutis; S41.112A Laceration without foreign body of left upper arm, initial encounter; X58.XXXA Exposure to other specified factors, initial encounter; Y93.9 Activity, unspecified; Y92.009 Unspecified place in unspecified non-institutional (private) residence as the place of occurrence of the external cause; S40.811A Abrasion of right upper arm, initial encounter; S81.802A Unspecified open wound, left lower leg, initial encounter; S81.801A Unspecified open wound, right lower leg, initial encounter
CPT/HCPCS: 36415; 70450-TC; 71045-TC; 71260-TC; 72170-TC; 76700-TC; 76870-TC; 76942-TC; 78226; 80048-TC; 80053-TC; 80076-TC; 81001; 82105; 82140-TC; 82378; 82550-TC; 82570-TC; 82607-TC; 82728-TC; 82784; 82962-TC; 83540-TC; 83605-TC; 83615-TC; 83735-TC; 83970; 84100-TC; 84153-TC; 84154-TC; 84155; 84165; 84300-TC; 84439-TC; 84443-TC; 84481; 84484-TC; 84702-TC; 85025-TC; 85045-TC; 85396; 86140-TC; 86225; 86235; 86334; 86431-TC; 86706; 86803; 86850; 86850-TC; 86860; 86870; 86880; 86900; 86901; 86905; 86906; 86970; 86971; 87040-TC; 87081-TC; 87086-TC; 87340; 87806; 88108-TC; 88305-TC; 89051-TC; 92526; 92611-TC; 94760-TC; 94762-TC; 94799-TC; 97110-TC; 97112-TC; 97116-TC; 97530-TC; 97535-TC; A4223; A9537; A9563; G0378; J0692; J0696; J1200; J1644; J1815; J2270; J3370; J3490; J7030; J7040; J7042; J7050; J7060; P9012; P9034; Q9967